=== PATIENT | female | born 1950 | race American Indian/Alaskan Native ===

== ENCOUNTER 2019-05-06 09:47 | Outpatient (CLI) | payer MEDICARE ==
--- NOTE | 2019-05-06 15:37 | Mammography Report ---
DIGITAL DIAGNOSTIC MAMMOGRAM WITH CAD, 05/06/2019 INDICATION: Abnormal screening mammogram. A 04/02/2019 report of a screening mammogram from [facility] describes a group of outer right calcifications requiring additional imaging. The report states th at additional calcifications in the breast are stable compared to previous exams. R92.2 TECHNIQUE: Digital left mammographic imaging was performed. Magnification views were obtained. This examination was interpreted with the benefit of Computer-aided Detection analysis. COMPARISON: 04/02/2019 screening mammogram. FINDINGS: Breast Density: There are scattered areas of fibroglandular density. A group of relatively coarse pleomorphic outer calcifications with at least 10 calcifications in the group. No layering on the lateral view. No associated mass or architectural distortion. IMPRESSION: Probably benign calcifications which had similar morphology as other calcifications in th e breast which have apparently been stable over time. Recommend 6 month follow-up with magnification views. Follow up recommendation: Short term follow up in 6 months. BI-RADS Category 3: Probably Benign. Followup in 6 months. A "normal" or negative report should not discourage follow up or biopsy of a clinically significant f inding. A written summary of these findings will be mailed to the patient. The patient will be entered into a mammography reporting system which will generate a reminder letter for the patient's next appointmen t at the appropriate interval. According to the [employer], yearly mammograms are recommended starting at age 40 and continuing as long as a woman is in good health. Breast MRI is recommended for women with an rabia roximately 20-25% or greater lifetime risk of breast cancer, including women with a strong family his tory of breast or ovarian cancer and women who have been treated for Hodgkin's disease. Signer Name: Ezra Moreno MD Signed: 05/06/2019 3:33 PM Workstation Name: [id number]
== END 2019-05-06 09:48 | disposition home or self-care (01) ==
LOC: MAMMO 09:47
PROVIDERS: ATTEND Family Medicine Adult Medicine
DX: R92.8 Other abnormal and inconclusive findings on diagnostic imaging of breast (principal); R92.2 Inconclusive mammogram

== ENCOUNTER 2020-01-04 13:01 | Outpatient (CLI) | payer MEDICARE ==
--- NOTE | 2020-01-05 08:36 | Mammography Report ---
DIGITAL DIAGNOSTIC MAMMOGRAM WITH CAD, 01/04/2020 INDICATION: Postbiopsy mammogram was obtained to document clip placement after stereotactic guided b iopsy. TECHNIQUE: Digital right mammographic imaging was performed. This examination was interpreted with the benefit of Computer-aided Detection analysis. COMPARISON: Diagnostic mammogram, 12/06/2019 and 05/06/2019 FINDINGS: Breast Density: There are scattered areas of fibroglandular density. Postbiopsy mammogram confirms slight lateral migration of the biopsy clip at the 9:00 position middle depth. The clip migrated approximately 3 cm from the targeted calcifications. The biopsy clip that was placed at the 1:00 position anterior depth did not deploy. IMPRESSION: Follow up recommendation: No recall. Post biopsy imaging. Postbiopsy mammogram after 2 site stereotactic guided biopsy. The biopsy clip at the 9:00 position has migrated slightly laterally. The biopsy clip at the 1:00 position did not depl oy. However, there are residual calcifications at this biopsy site if localization were acquired. Bio psy results are pending at this time. A "normal" or negative report should not discourage follow up or biopsy of a clinically significant f inding. A written summary of these findings will be mailed to the patient. The patient will be entered into a mammography reporting system which will generate a reminder letter for the patient's next appointmen t at the appropriate interval. According to the [employer], yearly mammograms are recommended starting at age 40 and continuing as long as a woman is in good health. Breast MRI is recommended for women with an rabia roximately 20-25% or greater lifetime risk of breast cancer, including women with a strong family his tory of breast or ovarian cancer and women who have been treated for Hodgkin's disease. Signer Name: Beatris Zuniga MD Signed: 01/05/2020 8:31 AM Workstation Name: [id number]
--- NOTE | 2020-01-07 11:42 | Mammography Report ---
Stereotactic guided right breast biopsy, 2 lesions, 01/04/2020 CLINICAL INFORMATION/INDICATION: Abnormal screening mammogram. The patient has a history of 2 areas o f right breast calcifications which require stereotactic guided biopsy. COMPARISON: Right diagnostic mammogram, 12/06/2019 and 05/06/2019. PROCEDURE: Risks, benefits and indications to the procedure were discussed with the patient in detail, including bleeding, infection, hematoma formation and inadequate tissue sampling. The patient agreed to procee d with both verbal and written consent. A timeout procedure was performed with 2 patient identifiers. The calcifications at the 9:00 position middle depth and 1:00 position anterior depth were targeted f or biopsy. The patient was placed in the prone position on the biopsy table. Stereotactic compared images were o btained of the area of interest. The targeted area was identified and coordinates were determined. Th e breast was cleansed and prepped in the usual sterile fashion. Lidocaine 1% with and without epineph rine was used for local anesthesia. Under direct stereotactic guidance, an 8 gauge Mammotome biopsy d evice was advanced to the correct position at the 9:00 position and multiple vacuum-assisted 8 gauge core samples were obtained in a round the clock fashion. Postbiopsy images confirm satisfactory tissu e sampling within the biopsy cavity. A biopsy clip was then deployed at the biopsy site. The biopsy d evice was removed. Hemostasis was achieved with manual pressure. A sterile pressure dressing was appl ied to the skin. The calcifications at the 1:00 position anterior depth were then targeted for biopsy. The breast was again cleansed and prepped in the usual sterile fashion. Lidocaine with and without epinephrine were used for local anesthesia. Under direct stereotactic guidance, an 8 gauge Mammotome biopsy device was advanced into the correct position at the 1:00 location and multiple vacuum assisted 8 gauge core sa mples were obtained in a round the clock fashion. Postbiopsy imaging confirms satisfactory sampling w ithin the biopsy cavity. A biopsy clip was placed but later noted to have not successfully deployed. Biopsy device was removed. Hemostasis was achieved with manual pressure. A sterile pressure dressing was applied to the skin. The patient tolerated procedure without difficulty. No complications were encountered. Postbiopsy ins tructions were discussed with the patient and given in writing. IMPRESSION: 1. Technically successful stereotactic guided right breast biopsy of 2 sites as described above. Biop sy results are pending and will be reported in an addendum. Signer Name: Beatris Zuniga MD Signed: 01/07/2020 11:37 AM Workstation Name: [id number]
== END 2020-01-04 13:02 | disposition home or self-care (01) ==
LOC: SPVWC 13:01
PROVIDERS: ATTEND Family Medicine Adult Medicine
DX: N63.12 Unspecified lump in the right breast, upper inner quadrant (principal); N63.11 Unspecified lump in the right breast, upper outer quadrant; N60.11 Diffuse cystic mastopathy of right breast; R92.8 Other abnormal and inconclusive findings on diagnostic imaging of breast; R92.0 Mammographic microcalcification found on diagnostic imaging of breast
CPT/HCPCS: 19081; 19082; 77065; 88305; A4648